=== PATIENT | female | born 1995 | race Caucasian/White ===

== ENCOUNTER 2017-01-22 23:53 | Outpatient (CLI) | payer MEDICAID ==
[2017-01-23] MEDS ORDERED: LACTATED RINGERS 1,000 ML IV SCH (01:00)
[2017-01-23 03:14] LABS: Hematocrit 36.9 % (30.3-42.9); Hemoglobin 12.3 gm/dl (10.1-14.3); Mean Corpuscular HGB Conc 33 % (30-34); Mean Corpuscular Hemoglobin 29 pg (28-32); Mean Corpuscular Volume 87 fl (79-97); Platelet Count 226 K/mm3 (140-440); Red Blood Count 4.24 M/mm3 (3.65-5.03); Red Cell Distribution Width 13.5 % (13.2-15.2); White Blood Count 10.6 K/mm3 (4.5-11.0)
[2017-01-23 07:31] VITALS: BP 115/63
--- NOTE | 2017-01-23 07:49 | Ultrasound Report ---
ULTRASOUND OB LIMITED History: Vaginal bleeding during Technique: Transabdominal ultrasound with Doppler interrogation. Gestation: Single Position: Cephalic Placenta: Anterior Placental Grade: 1 Heart Rate: 134 BPM Comment: No evidence for abruption or previa.
--- NOTE | 2017-01-23 08:49 | History and Physical Report ---
History of Present Illness Date of examination: 01/23/17 Date of admission: 01/23/2017 Chief complaint: C/O of having sex last night followed by bleeding Past History Past Medical History: no pertinent history - Obstetrical History : 4 Medications and Allergies Allergies Allergy/AdvReac Type Severity Reaction Status Date / Time No Known Allergies Allergy Verified 01/18/16 18:32 Home Medications Medication Instructions Recorded Confirmed Last Taken Type Ibuprofen [Motrin 600 MG tab] 600 mg PO Q8H PRN #30 tablet 01/19/16 01/23/17 Unknown Rx Active Meds: Active Medications Lactated Ringer's (Lactated Ringers) 1,000 mls @ 999 mls/hr IV DIRECT ROMINA Review of Systems All systems: negative - Vital Signs Vital signs: Vital Signs Pulse Pulse Ox 93 H 97 01/22/17 23:59 01/22/17 23:59 Temp Pulse Resp BP Pulse Ox 97.4 F L 104 H 18 115/63 96 01/23/17 07:31 01/23/17 07:32 01/23/17 07:31 01/23/17 07:31 01/23/17 07:32 - Physical Exam Breasts: Positive: deferred Cardiovascular: Regular rate Lungs: Positive: Clear to auscultation Abdomen: Positive: soft Vulva: both: normal Vagina: Positive: normal moisture Uterus: Positive: enlarged Anus/Rectum: Positive: normal perianal skin Deep Tendon Reflex Grade: Normal +2 - Obstetrical FHR: category 1 FHR comments: Cat I tracing Uterine Contraction Monitor Mode: External Cervical Dilatation: 1 Cervical Effacement Percentage: 60 station: -1 Uterine Contraction Pattern: Irregular Uterine Contraction Intensity: Mild Results Result Diagrams: 01/22/17 23:50 All other labs normal. Assessment and Plan A: Vaginal Bleeding S/P sex P: U/S shows no evidence of previa or abruption Counselled on s/s of labor, to F/u in office tomorrow
== END 2017-01-23 19:00 | disposition home or self-care (01) ==
LOC: TRG 23:53 → LD 01-23 01:35 → TRG 01-23 19:00
PROVIDERS: ATTEND Obstetrics & Gynecology
DX: O46.93 Antepartum hemorrhage, unspecified, third trimester (principal); Z3A.37 37 weeks gestation of pregnancy
CPT/HCPCS: 36415; 59025; 76815; 85027

== ENCOUNTER 2017-01-28 00:18 | Outpatient (CLI) | payer MEDICAID ==
[2017-01-28 00:46] VITALS: BP 126/84
--- NOTE | 2017-01-28 10:31 | Ultrasound Report ---
ULTRASOUND OB LIMITED History: Rupture of membranes Technique: Transabdominal ultrasound with Doppler interrogation. Gestation: Single Position: Cephalic Amniotic Fluid: Normal ISHA = 8.1 cm Placenta: Anterior, fundal Placental Grade: 2 Heart Rate: 127 BPM
== END 2017-01-28 01:53 | disposition home or self-care (01) ==
LOC: TRG 00:18
PROVIDERS: ATTEND Obstetrics & Gynecology
DX: O62.0 Primary inadequate contractions (principal); Z3A.30 30 weeks gestation of pregnancy
CPT/HCPCS: 59025; 76815

== ENCOUNTER 2017-02-23 09:01 | Emergency (ER) | payer MEDICAID ==
[2017-02-23 09:35] VITALS: BP 103/66
--- NOTE | 2017-02-23 09:49 | Emergency Department Report ---
ED Female HPI - General Chief complaint: Urogenital-Female Stated complaint: HEADACHES/FLU SYMPTOMS/L BREAST ENLARGED Time Seen by Provider: 02/23/17 09:41 Source: patient Mode of arrival: Ambulatory Limitations: No Limitations - History of Present Illness Initial comments: Patient here reports that she's having pain and heat in a left breast. She says she is currently breast-feeding. Also says she's having a headache and chills. Denies any nausea vomiting. She said her left breast is swollen. Pain is 8 out of 10. Patient [facility] goes to [facility] and her last delivery was 10/05/2016. Complaint: other (breasts pain and enlargement) Onset/Timin -: days(s) Location: other (lt breast) Radiation: non-radiating Severity: severe Severity scale (0 -10): 8 Quality: sharp, aching Consistency: constant Improves with: none, other (ice therapy) Worsens with: movement, bathing Are you Now?: No (recently had a baby 10/05/2016) Associated Symptoms: headaches. denies: vaginal discharge, vaginal bleeding, abdominal pain, nausea/vomiting, fever/chills, loss of appetite, dysuria, hematuria, rash, seizure, shortness of breath, syncope, weakness - Related Data Sexually active: Yes (patient with young child that she is breast- feeding) Previous Rx's Medication Instructions Recorded Last Taken Type Ibuprofen [Motrin 600 MG tab] 600 mg PO Q8H PRN #30 tablet 01/19/16 Unknown Rx Ibuprofen [Motrin 600 MG tab] 600 mg PO Q8H PRN #30 tablet 01/28/17 Unknown Rx Multivitamin with Iron 1 each PO DAILY #30 tablet 01/28/17 Unknown Rx [Multivitamins with Iron] oxyCODONE /ACETAMINOPHEN [Percocet 1 tab PO Q6HR PRN #30 tablet 01/28/17 Unknown Rx 5/325] Acetaminophen [Tylenol] 500 mg PO Q6HR PRN #20 tablet 02/23/17 Unknown Rx Cephalexin [Keflex] 500 mg PO Q8HR #30 cap 02/23/17 Unknown Rx Allergies Allergy/AdvReac Type Severity Reaction Status Date / Time sulfamethoxazole Allergy Rash Verified 01/28/17 18:44 [From Bactrim] trimethoprim [From Bactrim] Allergy Rash Verified 01/28/17 18:44 ED Review of Systems ROS: Stated complaint: HEADACHES/FLU SYMPTOMS/L BREAST ENLARGED Other details as noted in HPI Comment: All other systems reviewed and negative Constitutional: chills ENT: denies: throat pain Respiratory: no symptoms reported Cardiovascular: denies: chest pain, palpitations, edema, syncope Genitourinary: other (LT breast swelling/ pain). denies: urgency, dysuria, frequency, hematuria, discharge, abnormal menses, dyspareunia Musculoskeletal: denies: back pain, joint swelling, arthralgia Skin: denies: rash Neurological: headache ED Past Medical Hx - Past Medical History Previous Medical History?: No Hx Hypertension: No Hx Congestive Heart Failure: No Hx Diabetes: No Hx Deep Vein Thrombosis: No Hx Renal Disease: No Hx Sickle Cell Disease: No Hx Seizures: No Hx Asthma: No Hx COPD: No Hx HIV: No - Surgical History Past Surgical History?: Yes Additional Surgical History: c-sec x1 - Family History Family history: no significant - Social History Smoking Status: Never Smoker Substance Use Type: None - Medications Home Medications: Home Medications Medication Instructions Recorded Confirmed Last Taken Type Ibuprofen [Motrin 600 MG tab] 600 mg PO Q8H PRN #30 tablet 01/19/16 01/23/17 Unknown Rx Ibuprofen [Motrin 600 MG tab] 600 mg PO Q8H PRN #30 tablet 01/28/17 Unknown Rx Multivitamin with Iron 1 each PO DAILY #30 tablet 01/28/17 Unknown Rx [Multivitamins with Iron] oxyCODONE /ACETAMINOPHEN [Percocet 1 tab PO Q6HR PRN #30 tablet 01/28/17 Unknown Rx 5/325] Acetaminophen [Tylenol] 500 mg PO Q6HR PRN #20 tablet 02/23/17 Unknown Rx Cephalexin [Keflex] 500 mg PO Q8HR #30 cap 02/23/17 Unknown Rx ED Physical Exam - General Limitations: No Limitations General appearance: alert, in no apparent distress - Head Head exam: Present: atraumatic, normocephalic, normal inspection - Eye Eye exam: Present: normal appearance, PERRL, EOMI. Absent: periorbital swelling , periorbital tenderness Pupils: Present: normal accommodation - ENT ENT exam: Present: normal exam, normal orophraynx, mucous membranes moist, TM's normal bilaterally, normal external ear exam - Neck Neck exam: Present: normal inspection, full ROM. Absent: tenderness, meningismus, lymphadenopathy - Respiratory Respiratory exam: Present: normal lung sounds bilaterally. Absent: respiratory distress, chest wall tenderness - Cardiovascular Cardiovascular Exam: Present: regular rate, normal rhythm, normal heart sounds - GI/Abdominal GI/Abdominal exam: Present: soft, normal bowel sounds. Absent: distended, tenderness, guarding, rebound, rigid - Extremities Exam Extremities exam: Present: normal inspection, full ROM, normal capillary refill. Absent: tenderness, pedal edema, joint swelling, calf tenderness - Back Exam Back exam: Present: normal inspection, full ROM. Absent: tenderness, CVA tenderness (R), CVA tenderness (L), muscle spasm, paraspinal tenderness, vertebral tenderness, rash noted - Neurological Exam Neurological exam: Present: alert, oriented X3, normal gait, reflexes normal. Absent: motor sensory deficit - Psychiatric Psychiatric exam: Present: normal affect, normal mood - Skin Skin exam: Present: warm, dry, intact, erythema, other (left breast pain and swelling) - Expanded Skin Exam Expanded Description of rash: Present: tenderness (left breast), erythematous (left breast), swelling (left breast). Absent: discharge, fluctuant, indurated ED Course Vital Signs 02/23/17 09:28 Temperature 98.9 F Pulse Rate 88 Respiratory 18 Rate Blood Pressure 103/66 O2 Sat by Pulse 100 Oximetry - Reevaluation(s) Reevaluation #1: 02/23/17 10:55 Patient given Toradol 60 mg IM and clindamycin 600 mg IM and emergency room without any adverse reaction. ED Medical Decision Making - Lab Data Result diagrams: 02/23/17 09:58 Lab Results 02/23/17 Range/Units 09:58 WBC 8.3 (4.5-11.0) K/mm3 RBC 4.17 (3.65-5.03) M/mm3 Hgb 11.7 (10.1-14.3) gm/dl Hct 35.6 (30.3-42.9) % MCV 85 (79-97) fl MCH 28 (28-32) pg MCHC 33 (30-34) % RDW 14.3 (13.2-15.2) % Plt Count 237 (140-440) K/mm3 Lymph % (Auto) 25.6 (13.4-35.0) % Kinney % (Auto) 8.9 H (0.0-7.3) % Eos % (Auto) 0.5 (0.0-4.3) % Baso % (Auto) 0.4 (0.0-1.8) % Lymph # 2.1 (1.2-5.4) K/mm3 Kinney # 0.7 (0.0-0.8) K/mm3 Eos # 0.0 (0.0-0.4) K/mm3 Baso # 0.0 (0.0-0.1) K/mm3 Seg Neutrophils % 64.6 (40.0-70.0) % Seg Neutrophils # 5.3 (1.8-7.7) K/mm3 - Medical Decision Making ED course: Patient here with left breast engorgement and mastitis. Drainage noted from left breast. No rash noted to left breast. Mild erythema with tenderness to palpate to left breast. Patient was given clindamycin 600 mg IM and Toradol 60 mg IM. Patient goes to [facility]. I called [facility] and they want patient to leave from emergency room and to come to office today office in [place]. Patient was understanding of diagnosis, follow-up appointment [facility] at [facility] and medication treatment. [facility] and the patient will be discharged on Keflex and Tylenol plain and they will order stronger. Medication as patient needs. He said discharged home in stable condition with prescription for Keflex and Tylenol pain. Critical care attestation.: If time is entered above; I have spent that time in minutes in the direct care of this critically ill patient, excluding procedure time. ED Disposition Clinical Impression: Breast pain, left, Mastitis, left, acute, Mastalgia in female Disposition: DISCHARGED TO HOME OR SELFCARE Is pt being admited?: No Does the pt Need Aspirin: No Condition: Stable Instructions: Mastitis (ED), Breast Fullness Versus Breast Engorgement (ED) Additional Instructions: Take antibiotic as prescribed. Please directly to [facility] in [place] as soon as you leave the emergency department. Can take Tylenol plain every 6 hours 500 mg for left breast pain. [facility] and will prescribe something stronger if needed. Prescriptions: Acetaminophen [Tylenol] 500 mg PO Q6HR PRN #20 tablet PRN Reason: Pain Cephalexin [Keflex] 500 mg PO Q8HR #30 cap Referrals: PRIMARY CAREMD [Primary Care Provider] - 3-5 Days [facility] [Provider Group] - MICHELLE ([facility] [address] [place] [address] ) Forms: Accompanied Note, Work/School Release Form(ED)
[2017-02-23] MEDS ORDERED: CLEOCIN IM ONE (10:02)
[2017-02-23] MEDS ORDERED: TORADOL IM ONE (10:02)
[2017-02-23 10:40] LABS: Basophils % (Auto) 0.4 % (0.0-1.8); Eosinophils % (Auto) 0.5 % (0.0-4.3); Hematocrit 35.6 % (30.3-42.9); Hemoglobin 11.7 gm/dl (10.1-14.3); Mean Corpuscular HGB Conc 33 % (30-34); Mean Corpuscular Hemoglobin 28 pg (28-32); Mean Corpuscular Volume 85 fl (79-97); Platelet Count 237 K/mm3 (140-440); Red Blood Count 4.17 M/mm3 (3.65-5.03); Red Cell Distribution Width 14.3 % (13.2-15.2); White Blood Count 8.3 K/mm3 (4.5-11.0)
== END 2017-02-23 11:13 | disposition home or self-care (01) ==
LOC: ED 09:01
DX: N61.0 Mastitis without abscess (principal); N64.4 Mastodynia; Z88.2 Allergy status to sulfonamides; Z88.8 Allergy status to other drugs, medicaments and biological substances
CPT/HCPCS: 36415; 85025; 96372; 99283; J1885

== ENCOUNTER 2017-04-19 09:05 | Emergency (ER) | payer MEDICAID ==
[2017-04-19 09:46] VITALS: BP 117/74
[2017-04-19] MEDS ORDERED: DECADRON IM STA (12:11)
--- NOTE | 2017-04-19 12:37 | Emergency Department Report ---
Entered by AFUA RAY, acting as scribe for FIGUEROA VILLAR PA. ED Rash HPI - HPI Chief Complaint: Skin Rash Stated Complaint: POISON GARY BREAKOUT Time Seen by Provider: 04/19/17 10:28 Duration: 2 Days Location: Head (face), Neck, Chest, Abdomen (lower), Upper Extremities ( bilateral arms), Lower Extremities (bilateral legs) Suspected Cause: Plant (Poison Gary) Rash Symptoms: Yes Itching (to affected areas), No Facial Swelling, No Tongue/ Oral Swelling, No Breathing Difficulties, No Choking Sensation, No Wheezing/ Dyspnea, No Peeling, No Blistering, No Fever, No Lightheaded, No Malaise, No Myalgias Severity: mild (0/10) Other History: 21 y/o female with no significant PMHx c/o a rash to face, chest , neck, bilateral hands, lower extremities, and lower abdomen that began 2 days ago. Patient states she was exposed to poison gary 9 days ago. Rates severity a 0 /10. Associated itching, but she denies fever, chills, SOB, chest pain, sore throat, nausea, and vomiting. Allergic to sulfamethoxazole and trimethoprim. ED Review of Systems ROS: Stated complaint: POISON GARY BREAKOUT Other details as noted in HPI Comment: All other systems reviewed and negative Constitutional: no symptoms reported. denies: chills, fever Eyes: denies: eye pain, eye discharge, vision change ENT: denies: ear pain, throat pain Respiratory: no symptoms reported. denies: cough, shortness of breath, wheezing Cardiovascular: denies: chest pain, palpitations Endocrine: no symptoms reported Gastrointestinal: denies: abdominal pain, nausea, diarrhea Genitourinary: denies: urgency, dysuria, discharge Musculoskeletal: denies: back pain, joint swelling, arthralgia Skin: rash (rash to face, chest, neck, bilateral hands, bilateral legs, and lower abdomen with associated itching). denies: lesions Neurological: denies: headache, weakness, paresthesias Psychiatric: denies: anxiety, depression Hematological/Lymphatic: denies: easy bleeding, easy bruising ED Past Medical Hx - Past Medical History Previous Medical History?: No Hx Hypertension: No Hx Congestive Heart Failure: No Hx Diabetes: No Hx Deep Vein Thrombosis: No Hx Renal Disease: No Hx Sickle Cell Disease: No Hx Seizures: No Hx Asthma: No Hx COPD: No Hx HIV: No - Surgical History Past Surgical History?: Yes Additional Surgical History: c-sec x1 - Family History Family history: no significant - Social History Smoking Status: Never Smoker Substance Use Type: None - Medications Home Medications: Home Medications Medication Instructions Recorded Confirmed Last Taken Type Ibuprofen [Motrin 600 MG tab] 600 mg PO Q8H PRN #30 tablet 01/19/16 01/23/17 Unknown Rx Ibuprofen [Motrin 600 MG tab] 600 mg PO Q8H PRN #30 tablet 01/28/17 Unknown Rx Multivitamin with Iron 1 each PO DAILY #30 tablet 01/28/17 Unknown Rx [Multivitamins with Iron] oxyCODONE /ACETAMINOPHEN [Percocet 1 tab PO Q6HR PRN #30 tablet 01/28/17 Unknown Rx 5/325] Acetaminophen [Tylenol] 500 mg PO Q6HR PRN #20 tablet 02/23/17 Unknown Rx Cephalexin [Keflex] 500 mg PO Q8HR #30 cap 02/23/17 Unknown Rx diphenhydrAMINE [Benadryl CAP] 25 mg PO Q8HR PRN #12 capsule 04/19/17 Unknown Rx methylPREDNISolone [Medrol] 4 mg PO QAM #1 tab.ds.pk 04/19/17 Unknown Rx Rash Exam - Exam General: Vital signs noted. General: well nourished, well developed, 21 year old female in no acute distress and nontoxic in appearance Mouth: Moist, no pharyngeal exudate or erythema. Uvula is midline and oral airway is patent. No facial swelling. No peritonsillar abscesses. Nose: Normal external appearance, no drainage. Maxillary and frontal sinuses nontender to palpation Neck: Supple, no C-spine tenderness, no tracheal deviation. Nontender to palpation. no adenopathy Ears: Bilateral TMs ar without any redness, swelling, or drainage. Bilateral EAC without any redness, swelling, or drainage. Psych: Normal mood and behavior HEENT: No Periorbital Edema, No Conjuctival Injection, No Chemosis, No Perioral Edema, No Tongue Edema, No Uvular Edema, No Compromised Airway, No Drooling Lungs: Yes Good Air Exchange (Clear to auscultation bilaterally), No Wheezes, No Ronchi, No Stridor, No Cough, No Labored Respirations, No Retractions, No Use of Accessory Muscles, No Other Abnormal Lung Sounds Heart: Yes Regular (S1-S2, regular rate, regular rhythm), No Murmur Skin: Yes Erythema, Yes Other (clustered, erythematous, blisters, rash that is sparsely scattered to face, bilateral hands on both sides, lower extremities, and lower abdomen consistent with poison gary), No Urticarial Rash, No Maculopapular Rash, No Morbilliform rash, No Bulla(e), No Excoriations, No Weeping, No Tenderness, No Edema, No Encrustations Other: Positive: Abdomen Normal (Soft. Nondistended. Normal bowel sounds in all quandrants.), Neurologic Normal (Alert. Oriented x 3.), Musculoskeletal Normal ( No CCE. +2 pulses. No neurovascular compromise) ED Course Vital Signs 04/19/17 09:43 Temperature 98.6 F Pulse Rate 77 Respiratory 16 Rate Blood Pressure 117/74 O2 Sat by Pulse 100 Oximetry - Reevaluation(s) Reevaluation #1: 04/19/17 12:27 Patient given Decadron 10 mg IM in emergency room. ED Medical Decision Making - Medical Decision Making ED course: She reports that she was in contact with poison gary and reported in generalized rash and itching. Patient with poison gary and pruritic dermatitis . She was given Decadron 10 mg IM and emergency room. Discussed outpatient treatment plan and diagnosis and patient discharged home with prescription for Medrol Dosepak and Benadryl and to follow-up with her primary care physician which she says she does have one on Sunday. Critical care attestation.: If time is entered above; I have spent that time in minutes in the direct care of this critically ill patient, excluding procedure time. ED Disposition Clinical Impression: Poison gary dermatitis, Pruritic condition Disposition: DC-01 TO HOME OR SELFCARE Is pt being admited?: No Does the pt Need Aspirin: No Condition: Stable Instructions: Poison Gary (ED), Itchy Skin (ED) Additional Instructions: Please take Medrol Dosepak as instructed Take Atarax for itching This medication can cause drowsiness. Do not drive or operate heavy machinery while taking this medication Prescriptions: diphenhydrAMINE [Benadryl CAP] 25 mg PO Q8HR PRN #12 capsule PRN Reason: Itching methylPREDNISolone [Medrol] 4 mg PO QAM #1 tab.ds.pk Referrals: PRIMARY CARE,MD [Primary Care Provider] - 04/23/17 Forms: Work/School Release Form(ED) This documentation as recorded by the CORY mccallum JASMINE,accurately reflects the service I personally performed and the decisions made by ,FIGUEROA IVLLAR PA.
== END 2017-04-19 12:49 | disposition home or self-care (01) ==
LOC: ED 09:05
DX: L23.7 Allergic contact dermatitis due to plants, except food (principal); L29.9 Pruritus, unspecified
CPT/HCPCS: 96372; 99282; J1100

== ENCOUNTER 2017-08-26 08:32 | Emergency (ER) | payer MEDICAID ==
[2017-08-26 09:31] LABS: Bacteria,Urine 1+ /HPF (Negative); Bilirubin,Urine NEG (Negative); Blood,Urine SM (Negative); Ketones,Urine NEG (Negative); Leukocyte Esterase,Urine NEG (Negative); Mucus,Urine 3+ /HPF; Nitrite,Urine NEG (Negative); Protein,Urine <15 mg/dL mg/dL (Negative); Urobilinogen,Urine < 2.0 mg/dL (<2.0)
[2017-08-26 09:33] LABS: Basophils % (Auto) 0.9 % (0.0-1.8); Eosinophils % (Auto) 0.9 % (0.0-4.3); Hematocrit 38.8 % (30.3-42.9); Hemoglobin 13.3 gm/dl (10.1-14.3); Mean Corpuscular HGB Conc 34 % (30-34); Mean Corpuscular Hemoglobin 30 pg (28-32); Mean Corpuscular Volume 89 fl (79-97); Platelet Count 254 K/mm3 (140-440); Red Blood Count 4.37 M/mm3 (3.65-5.03); Red Cell Distribution Width 13.4 % (13.2-15.2); White Blood Count 10.2 K/mm3 (4.5-11.0)
[2017-08-26 09:43] LABS: Alanine Aminotransferase 10 units/L (7-56); Albumin 4.4 g/dL (3.9-5); Albumin/Globulin Ratio 1.4 %; Alkaline Phosphatase 79 units/L (35-129); Anion Gap 17 mmol/L; BUN/Creatinine Ratio 24; Blood Urea Nitrogen 12 mg/dL (7-17); Calcium 9.5 mg/dL (8.4-10.2); Carbon Dioxide 25 mmol/L (22-30); Chloride 103.1 mmol/L (98-107); Glucose 95 mg/dL (65-100); Lipase 17 units/L (13-60); Potassium 3.9 mmol/L (3.6-5.0); Sodium 141 mmol/L (137-145); Total Protein 7.5 g/dL (6.3-8.2)
[2017-08-26] MEDS ORDERED: MORPHINE IV ONE (12:45)
--- NOTE | 2017-08-26 13:52 | Ultrasound Report ---
RIGHT UPPER QUADRANT ABDOMINAL ULTRASOUND: 08/26/17 08:32:00 CLINICAL: Right upper quadrant abdominal pain. FINDINGS: High-resolution ultrasound demonstrated a liver with normal size, contour and echogenicity. No liver mass. Normal hepatic vasculature and inferior vena cava. Gallbladder sludge and small stones. The gall bladder wall is abnormal with hypoechoic central area. The gallbladder wall measures 4.4 mm in thickness. No positive Ferreira sign. Normal intrahepatic and extrahepatic bile ducts. The common bile duct measures 4.4 mm diameter. The pancreas was well imaged and normal. Normal upper abdominal aorta. The right kidney is normal and measures 12.6 x 4.5 x 4.3cm. No ascites or mass. IMPRESSION: Cholelithiasis and changes in the gallbladder wall suggesting acute cholecystitis. However, the technologist did not elicit a positive Ferreira's sign which is a necessary criterion for ultrasound diagnosis of acute cholecystitis. Consider HIDA.
[2017-08-26] MEDS ORDERED: ZOFRAN IV ONE (14:25)
--- NOTE | 2017-08-26 14:39 | Emergency Department Report ---
HPI - General Chief Complaint: Abdominal Pain Time Seen by Provider: 08/26/17 12:45 - HPI HPI: 22 year-old female coming in with right upper quadrant pain starting on this morning patient had a history of kidney stones. She states that her pain is accompanied by nausea, vomiting but no urinary symptoms but no diarrhea. Patient has not taking any medication at home for his symptoms. She denies any exacerbating factors. She denies any alleviating factors. She denies any recent travel, or unusual foods. She denies any sick contacts. MD Complaint: abdominal pain -: Gradual Location: Right upper Radiation: none Migration to: no migration Severity scale (0 -10): 4 Quality: sharp Improves With: nothing Associated Symptoms: nausea, vomiting, chills ED Past Medical Hx - Past Medical History Previous Medical History?: Yes Hx Hypertension: No Hx Congestive Heart Failure: No Hx Diabetes: No Hx Deep Vein Thrombosis: No Hx Renal Disease: No Hx Sickle Cell Disease: No Hx Seizures: No Hx Asthma: No Hx COPD: No Hx HIV: No Additional medical history: Gallstomes, Vaginal delivery x 1 - Surgical History Past Surgical History?: Yes Additional Surgical History: c-sec 2017 - Social History Smoking Status: Current Every Day Smoker Substance Use Type: Alcohol, Marijuana, Prescribed - Medications Home Medications: Home Medications Medication Instructions Recorded Confirmed Last Taken Type Ibuprofen [Motrin 600 MG tab] 600 mg PO Q8H PRN #30 tablet 01/19/16 01/23/17 Unknown Rx Ibuprofen [Motrin 600 MG tab] 600 mg PO Q8H PRN #30 tablet 01/28/17 Unknown Rx Multivitamin with Iron 1 each PO DAILY #30 tablet 01/28/17 Unknown Rx [Multivitamins with Iron] oxyCODONE /ACETAMINOPHEN [Percocet 1 tab PO Q6HR PRN #30 tablet 01/28/17 Unknown Rx 5/325] Acetaminophen [Tylenol] 500 mg PO Q6HR PRN #20 tablet 02/23/17 Unknown Rx diphenhydrAMINE [Benadryl CAP] 25 mg PO Q8HR PRN #12 capsule 04/19/17 Unknown Rx methylPREDNISolone [Medrol] 4 mg PO QAM #1 tab.ds.pk 04/19/17 Unknown Rx Cephalexin [Keflex] 500 mg PO Q8HR #30 cap 08/26/17 Unknown Rx ED Review of Systems ROS: Stated complaint: ABD/BACK PAIN Other details as noted in HPI Comment: All other systems reviewed and negative Cardiovascular: as per HPI Gastrointestinal: abdominal pain, nausea, vomiting Physical Exam - Physical Exam Vital Signs: Vital Signs 08/26/17 08:38 Temperature 98.4 F Pulse Rate 57 L Respiratory 18 Rate Blood Pressure 126/76 O2 Sat by Pulse 97 Oximetry Physical Exam: Physical Exam: Physical Exam: - General Limitations: No Limitations General appearance: alert, in no apparent distress. - Head Head exam: Present: atraumatic, normocephalic - Eye Eye exam: Present: normal appearance - ENT ENT exam: Present: mucous membranes moist - Neck Neck exam: Present: normal inspection - Respiratory Respiratory exam: Present: normal lung sounds bilaterally. Absent: respiratory distress - Cardiovascular Cardiovascular Exam: Present: normal rhythm, normal rate. Absent: systolic murmur, diastolic murmur, rubs, gallop - GI/Abdominal GI/Abdominal exam: Present: soft, normal bowel sounds - Extremities Exam Extremities exam: Present: normal inspection - Back Exam Back exam: Present: normal inspection - Neurological Exam Neurological exam: Present: alert, oriented X3 - Psychiatric Psychiatric exam: normal affect and mood - Skin Skin exam: Present: warm, dry, intact, normal color. Absent: rash ED Course Vital Signs 08/26/17 08:38 Temperature 98.4 F Pulse Rate 57 L Respiratory 18 Rate Blood Pressure 126/76 O2 Sat by Pulse 97 Oximetry ED Medical Decision Making - Lab Data Result diagrams: 08/26/17 09:10 08/26/17 09:10 Critical care attestation.: If time is entered above; I have spent that time in minutes in the direct care of this critically ill patient, excluding procedure time. ED Disposition Clinical Impression: Cholelithiasis Qualifiers: Cholelithiasis location: gallbladder Cholecystitis presence: without cholecystitis Biliary obstruction: with biliary obstruction Qualified Code(s): K80.21 - Calculus of gallbladder without cholecystitis with obstruction Disposition: - TO HOME OR SELFCARE Is pt being admited?: No Does the pt Need Aspirin: No Condition: Stable Instructions: Abdominal Pain (ED), Biliary Colic (ED) Prescriptions: Cephalexin [Keflex] 500 mg PO Q8HR #30 cap Referrals: PRIMARY CAREMD [Primary Care Provider] - 3-5 Days JACQUE MARTINEZ MD [Staff Physician] - 3-5 Days
[2017-08-26] MEDS ORDERED: TYLENOL PO ONE (14:59)
[2017-08-26 15:00] VITALS: BP 122/72
[2017-08-26] MEDS ORDERED: TYLENOL ONE (15:00)
== END 2017-08-26 15:02 | disposition home or self-care (01) ==
LOC: ED 08:32
DX: K80.21 Calculus of gallbladder without cholecystitis with obstruction (principal); F12.10 Cannabis abuse, uncomplicated; F17.200 Nicotine dependence, unspecified, uncomplicated
CPT/HCPCS: 36415; 76705; 80053; 81001; 81025; 83690; 85025; 99284; J2270; J2405

== ENCOUNTER 2017-09-06 11:10 | Day surgery (SDC) | payer MEDICAID ==
[~2017-09-06 11:10] MED LIST: LACTATED RINGERS 1,000 ML IV SCH; PEPCID PO NR; VERSED IV NR
[2017-09-06] MEDS ORDERED: MARCAINE 0.5% 30 ML INFILTRATI ONE (11:49)
--- NOTE | 2017-09-06 12:12 | Anesthesia Day of Surgery ---
Anesthesia Day of Surgery - Day of Surgery Patient Examined: Yes Patient H&P Reviewed: Yes Patient is NPO: Yes
--- NOTE | 2017-09-06 12:12 | Anesthesia Consultation ---
Anesthesia Consult and Med Hx Date of service: 09/06/17 - Airway Anesthetic Teeth Evaluation: Good ROM Head & Neck: Adequate Mental/Hyoid Distance: Adequate Mallampati Class: Class I Intubation Access Assessment: Good - Pulmonary Exam CTA: Yes - Cardiac Exam Cardiac Exam: RRR - Pre-Operative Health Status ASA Pre-Surgery Classification: ASA2 Proposed Anesthetic Plan: General - Pre-Anesthesia Comment Pre-Anesthesia Comments: Pt is nursing - Pulmonary Hx Smoking: Yes (1 pack for 1 week for 2 years) Hx Asthma: No COPD: No Hx Pneumonia: No - Cardiovascular System Hx Hypertension: No - Central Nervous System Hx Seizures: No Hx Psychiatric Problems: No - Endocrine Hx Renal Disease: No Hx Hypothyroidism: No Hx Hyperthyroidism: No - Hematic Hx Anemia: No Hx Sickle Cell Disease: No - Other Systems Hx Alcohol Use: Yes (occas) Hx Substance Use: Yes (marijuana, stopped 2 years ago) Hx Cancer: No Hx Obesity: Yes - Additional Comments Anesthesia Medical History Comments: Pt has in past, denies any familial anesthesia complication.
[2017-09-06] MEDS ORDERED: DIPRIVAN 10 MG/ML IV ONE (12:39)
[2017-09-06] MEDS ORDERED: ZEMURON IV ONE (12:40)
[2017-09-06] MEDS ORDERED: DILAUDID ONE (12:40)
[2017-09-06] MEDS ORDERED: XYLOCAINE MPF 2% ONE (12:40)
[2017-09-06] MEDS ORDERED: ANCEF/STERILE WATER 2 GM/20 ML IV NR (13:00)
[2017-09-06] MEDS ORDERED: TRANSDERM-SCOP TD NR (13:00)
[2017-09-06] MEDS ORDERED: MARCAINE 0.5% INFILTRATI ONE ×2 (13:29)
[2017-09-06] MEDS ORDERED: NACL 0.9% IR ONE ×2 (13:29)
[2017-09-06] MEDS ORDERED: DECADRON ONE (13:35)
[2017-09-06] MEDS ORDERED: ZOFRAN ONE (13:35)
[2017-09-06] MEDS ORDERED: ROBINUL ONE (13:49)
[2017-09-06] MEDS ORDERED: NEOSTIGMINE ONE (13:50)
[2017-09-06] MEDS ORDERED: LACTATED RINGERS 1,000 ML ONE (14:03)
[2017-09-06] MEDS ORDERED: TORADOL ONE (14:40)
--- NOTE | 2017-09-06 14:45 | Discharge Summary ---
Short Stay Discharge Plan Activity: advance as tolerated Weight Bearing Status: Full Weight Bearing Diet: low fat Wound: per your surgeon's advice Follow up with: PRIMARY CARE, [Primary Care Provider] - 7 Days
[2017-09-06] MEDS ORDERED: NORCO 5/325 PO PRN ×2 (14:46→15:00)
--- NOTE | 2017-09-06 16:43 | Post Anesthesia Evaluation ---
- Post Anesthesia Evaluation Patient Participated: Yes Airway Patent: Yes Stable Respiratory Function: Yes Nausea/Vomiting: No Temp > 96.8F: Yes Pain Manageable: Yes Adequeate Hydration: Yes Anesthesia Complications: No Patient on Ventilator: No
[2017-09-06] MEDS ORDERED: NORCO 5/325 PO SCH (18:00)
--- NOTE | 2017-09-06 18:28 | Operative Report ---
INDICATION FOR PROCEDURE: This patient was seen in my office because of severe pain to the right upper quadrant. She was found to have multiple gallstones. She looks sick to me and thus she was scheduled to have surgery today, which is cholecystectomy. PREOPERATIVE DIAGNOSIS: Gallbladder disease with stone. POSTOPERATIVE DIAGNOSIS: Gallbladder disease with stone. SURGERY: Laparoscopic cholecystectomy. ANESTHESIA: General. BLOOD LOSS: Minimal. FINDINGS: The patient had a very large gallbladder that is filled with multiple small stones. The cystic duct is about 1.5-2 mm. I was able to dissect it completely from the common bile duct. There was lots of inflammation there. I was able to transect it after endoclipping it x 4. I stayed a good 1 cm from the cystic duct junction. Then, the gallbladder was removed in toto using electrocautery going from inferiorly to superiorly. Lots of small stones were seen. Some of them slipped out, but we were able to retrieve them all with irrigation and 1 by 1. We were very much satisfied. Then, the gallbladder was removed in toto using the EndoCatch. The area was then irrigated thoroughly with normal saline below the liver and above the liver and all the way down to the pelvic area. We were very much satisfied. Then the trocars were removed after ascertaining good hemostasis. We did have 4 trocars 5 in the right midabdomen, another 5 in the lateral to the abdomen right side, another 5 in the supraumbilical area, and 10 in the mid epigastrium. We were very much satisfied with that. Then the fascia was closed with the use of 0 Vicryl interruptedly and the skin with rich. The bandage was then applied. The patient was then transferred to the recovery room in good condition. I did check the specimen and after I finished, I could see easily the cystic duct and the infundibulum as well as the fundus of the gallbladder itself. JOB# [id number] YU/KRISTINA
[2017-09-06 20:10] VITALS: BP 122/76
--- NOTE | 2017-09-06 23:24 | Discharge Summary ---
SHORT STAY AND DISCHARGE SUMMARY HOSPITAL COURSE: This patient came today for definitive surgical intervention in terms of cholecystectomy. This was done with the scope. She had lots of inflammation there. We had a good hemostasis after we finished examination. Upon admission showed moderate to severe tenderness in the right upper quadrant, but otherwise a healthy young female. So, the operation was performed and she was seen in the recovery room. She was doing fine. I believe at this point, she may go home to see me in my office in about 10 days. The patient was to stay away from greasy and heavy meals and she was given prescription for [place] 5/325 one every 6 hours p.r.n. for pain. JOB# [id number] YU/KRISTINA
== END 2017-09-06 18:20 | disposition home or self-care (01) ==
LOC: OR 11:10
PROVIDERS: ATTEND Surgery
DX: K80.10 Calculus of gallbladder with chronic cholecystitis without obstruction (principal); F17.210 Nicotine dependence, cigarettes, uncomplicated; E66.9 Obesity, unspecified; Z88.2 Allergy status to sulfonamides
CPT/HCPCS: 47562; 81025; 88304; A4217; J0690; J1100; J1170; J1885; J2250; J2405; J2704; J2710; J7120